=== PATIENT | female | born 1990 | race Caucasian/White ===

== ENCOUNTER → 2024-06-16 | Outpatient (CLI) | payer MEDICAID ==
[~2024-06-16] MED LIST: DIFLUCAN150 MG PO; MACROBID100 M1 PO; MOTRIN800 MG PO; [UNRECOGNIZED DRUG - REMARK] PO
== END | disposition home or self-care (01) ==
LOC: US 09:35
PROVIDERS: ATTEND Internal Medicine Endocrinology, Diabetes & Metabolism
DX: E04.1 Nontoxic single thyroid nodule (principal); E05.90 Thyrotoxicosis, unspecified without thyrotoxic crisis or storm

== ENCOUNTER → 2024-07-14 | Outpatient (CLI) | payer MEDICAID ==
[~2024-07-14] MED LIST changes: +Technetium Tc-99m pertechnetat 1 KIT KIT IV SCH
== END | disposition home or self-care (01) ==
LOC: NM 06-21 07:00
PROVIDERS: ATTEND Internal Medicine Endocrinology, Diabetes & Metabolism
DX: E04.1 Nontoxic single thyroid nodule (principal); E05.90 Thyrotoxicosis, unspecified without thyrotoxic crisis or storm

== ENCOUNTER → 2025-05-25 | Outpatient (CLI) | payer OTHER ==
[~2025-05-25] MED LIST changes: -Technetium Tc-99m pertechnetat 1 KIT KIT IV SCH
[2025-05-25 10:01] LABS: FREE T4 1.24 ng/dl (0.89-1.76)
== END | disposition home or self-care (01) ==
LOC: LAB 09:02
PROVIDERS: ATTEND Internal Medicine Endocrinology, Diabetes & Metabolism
DX: E03.9 Hypothyroidism, unspecified (principal)